=== PATIENT | male | born 1990 | race African-American/Black ===

== ENCOUNTER 2021-01-19 12:26 | Emergency (ER) | payer OTHER ==
[~2021-01-19] VITALS: Ht 172.7 cm; Wt 90.3 kg
[2021-01-19 12:36] VITALS: BP 152/87
[2021-01-19 12:39] VITALS: BP 152/87
[2021-01-19] MEDS ORDERED: TORADOL IM STA (12:41)
[2021-01-19] MEDS ORDERED: KENALOG-40 IM STA (12:41)
--- NOTE | 2021-01-19 12:41 | NUR ---
ARRIVAL PATIENT ARRIVED TO [facility] AMBULATORY, C/O LEFT GREAT TOE PAIN FOR THE PAST 2 DAYS, PAIN WITH RANGE OF MOTION AND AMBULATION, CAME TO THE ED FOR EVAL BY EDP, DOCTOR CANDICE NOTIFIED OF PATIENT'S ARRIVAL.
[2021-01-19] MEDS ORDERED: TORADOL ONE (12:45)
[2021-01-19] MEDS ORDERED: KENALOG-40 ONE (12:45)
--- NOTE | 2021-01-19 12:53 | ER.PDOC ---
General Chief Complaint: Extremities Stated Complaint: PAIN/LEFT BIG TOE Time seen by MD: 12:52 Source: patient Exam Limitations: no limitations History of Present Illness Initial Comments Painful left big toe for 3 days. No injury, fever or chills. Patient eats a lot of steak. Recent Injury: No Where: home Severity: moderate Exacerbated By: walking movement Relieved By: nothing Allergies: Coded Allergies: egg (Verified Allergy, Unknown, 01/19/21) Past Medical History Surgical History: appendectomy, tonsillectomy Family History Significant Family History: no pertinent family hx Social History Smoking: non-smoker Alcohol Use: none Drug Use: none Review of Systems Constitutional: no symptoms reported EENTM: no symptoms reported Respiratory: no symptoms reported Cardiovascular: no symptoms reported Gastrointestinal: no symptoms reported Musculoskeletal: see HPI All Other Systems: Reviewed and Negative Physical Exam General Appearance: Alert, No Apparent Distress Lower Extremity: tenderness (Left first toe without redness or erythema. No swelling.) Vascular: no vascular compromise, pulses full/equal Neuro/Psych: sensation nml, motor nml, oriented x3, CN's nml as tested, mood/affect nml Skin: color nml, warm/dry, no rash Back/Neck: nml inspection EENT: eyes inspection nml, ENT inspection nml, pharynx nml Respiratory: no resp distress, breath sounds nml CVS: reg rate & rhythm, heart sounds nml Abdomen: non-tender, no organomegaly, no bruit/mass Results/Orders Results/Orders Orders - JASE HARVEY MD Ketorolac Tromethamine (Toradol) (01/19/21 12:41) Triamcinolone Acetonide (Kenalog-40) (01/19/21 12:41) Xr Foot Lt (01/19/21 12:41) Ketorolac Tromethamine (Toradol) (01/19/21 12:45) Triamcinolone Acetonide (Kenalog-40) (01/19/21 12:45) Vital Signs Date Time Temp Pulse Resp B/P (MAP) Pulse Ox O2 Delivery O2 Flow Rate FiO2 01/19/21 13:20 98.1 50 18 122/82 (95) 99 Room Air 01/19/21 12:39 98.1 53 18 152/87 (108) 99 Room Air 01/19/21 12:36 98.1 53 18 99 01/19/21 12:36 98.1 53 18 01/19/21 12:36 98.1 53 18 152/87 (108) 99 Room Air Administered Medications Medications (Trade) Dose Ordered Sig/Nick Route PRN Reason Start Time Stop Time Status Last Admin Dose Admin Ketorolac Tromethamine (Toradol) 60 mg STAT STAT IM 01/19/21 12:41 01/19/21 12:43 DC 01/19/21 12:46 60 MG Triamcinolone Acetonide (Kenalog-40) 40 mg STAT STAT IM 01/19/21 12:41 01/19/21 12:43 DC 01/19/21 12:46 40 MG Progress Progress X rays left foot: Chronic changes. No acute bony abnormality. Patient's pain improved with Toradol and Kenalog shots. Reviewed x-ray report with him. ER DEPART Departure Time of Disposition: 13:44 Disposition: 01 HOME / SELF CARE / HOMELESS Impression: Primary Impression: Acute gout Condition: Improved Referrals: PCP,UNKNOWN (PCP) PRIMARY CARE PROVIDER Additional Instructions: Indomethacin Follow-up with your PCP in 2 to 3 days Return to ED if worsening pain or concerns Duration or Time Spent with Pa: 10 min Problem Qualifiers Primary Impression: Acute gout Gout site: foot Gout etiology: unspecified cause Laterality: left Qualified Codes: M10.9 - Gout, unspecified JASE HARVEY MD Jan 19, 2021 12:53
--- NOTE | 2021-01-19 13:16 | DIREP ---
PROCEDURE:XRAY FOOT MIN 3 VWS-LT COMPARISON:None. INDICATIONS:Pain 1st toe FINDINGS: BONES:Normal. JOINTS:Mild left hallux valgus and bunion deformity and degenerative changes of the 1st MTP joint. SOFT TISSUES:Normal. OTHER:No additional findings. CONCLUSION:Chronic changes. No acute bony abnormality. Dictated by: Yolie Sanford MD on 01/19/2021 at 01:13 PM
[2021-01-19 13:20] VITALS: BP 122/82
== END 2021-01-19 13:49 | disposition home or self-care (01) ==
LOC: ER 12:26
DX: M10.9 Gout, unspecified (principal); Z79.1 Long term (current) use of non-steroidal anti-inflammatories (NSAID)
CPT/HCPCS: 73630; 96372; 99284; J1885; J3301